=== PATIENT | female | born 1930 | race Hispanic/Latino ===

== ENCOUNTER 2018-02-17 01:47 | Emergency (ER) | payer MEDICARE, OTHER ==
[2018-02-17 03:24] LABS: #Lymphocytes 0.8 thou/uL (1.20-3.40); #Monocytes 0.5 thou/uL (0.11-0.59); #Neutrophils 2.3 thou/uL (1.40-6.50); %Basophils 0.1 % (0.0-1.0); %Lymphocytes 21.3 % (21.0-51.0); %Neutrophils 64.5 % (42.0-75.0); Mean Corpuscular HGB CONC 34.2 g/dL (32.0-36.0); Mean Corpuscular Hemoglobin 30.8 pg (27.0-31.0); Mean Platelet Volume 6.9 fL (7.4-10.4); Platelet Count 339 thou/uL (130-400); RBC Distribution Width 13.3 % (11.5-14.5); Red Blood Cell (RBC) Count 4.22 mill/uL (4.20-5.40); White Blood Cell (WBC) Count 3.6 thou/uL (4.8-10.8)
[2018-02-17 03:33] LABS: ALT (SGPT) 11 U/L (8-55); AST (SGOT) 25 U/L (5-34); Albumin 3.7 g/dL (3.4-4.8); Alkaline Phosphatase 70 U/L (40-150); Anion Gap 11 mmol/L (10-20); BUN (Urea Nitrogen) 15 mg/dL (9.8-20.1); Bilirubin, Total 0.9 mg/dL (0.2-1.2); Calc. Creatinine Clearance 0 mL/min (70-130); Calcium 8.6 mg/dL (7.8-10.44); Carbon Dioxide 25 mmol/L (23-31); Chloride 103 mmol/L (98-107); Estimated GFR-MDRD 74; Globulin 2.5 g/dL (2.4-3.5); Glucose 112 mg/dL (83-110); Potassium 4.5 mmol/L (3.5-5.1); Protein, Total 6.2 g/dL (6.0-8.3); Sodium 134 mmol/L (136-145)
[2018-02-17 03:35] LABS: CKMB 1.4 ng/mL (0-6.6); Troponin I Less than 0.010 ng/mL (< 0.028)
[2018-02-17] MEDS ORDERED: Furosemide 40 MG/4 ML VIAL ONE (04:22)
[2018-02-17 06:27] LABS: Bilirubin Negative (Negative); Blood, Urine Negative (Negative); Clarity CLEAR (Clear); Glucose, Urine (Dipstick) Negative (Negative); Leukocyte Negative (Negative); Nitrite Negative (Negative); Protein, Urine (Dipstick) Negative (Neg-Trace); Specific Gravity, Urine 1.005 (1.002-1.036)
--- NOTE | 2018-02-17 09:00 | RAD ---
CHEST 1 VIEW: Date: 02/17/18 HISTORY: Emergency exam. Weakness. COMPARISON: Chest radiograph dated 03/30/17. FINDINGS: Heart size is enlarged. Prominence of the pulmonary arteries. Blunting left costophrenic sulci. No pn eumothorax. Mild atelectasis in the lung bases. IMPRESSION: No significant change in radiographic appearance of chest. No acute intrathoracic abnormality. POS: [facility]
--- NOTE | 2018-04-22 12:32 | EKG ---
Test Reason : Blood Pressure : / mmHG Vent. Rate : 055 BPM Atrial Rate : 055 BPM P-R Int : 172 ms QRS Dur : 102 ms QT Int : 444 ms P-R-T Axes : 059 -21 055 degrees QTc Int : 424 ms Sinus bradycardia Nonspecific ST and T wave abnormality Abnormal ECG Confirmed by BRANDYN GONZALEZ ([id number]), film editor supervisor LENI ROSSI ([id number] on 04/22/2018 12:31:45 PM Referred By: Confirmed By:BRANDYN GONZALEZ
== END 2018-02-17 07:32 | disposition home or self-care (01) ==
LOC: ERS 01:47
DX: R53.83 Other fatigue (principal); I48.91 Unspecified atrial fibrillation; I49.9 Cardiac arrhythmia, unspecified; E11.9 Type 2 diabetes mellitus without complications; I10 Essential (primary) hypertension; K21.9 Gastro-esophageal reflux disease without esophagitis; F41.9 Anxiety disorder, unspecified; Z79.899 Other long term (current) drug therapy
CPT/HCPCS: 71045; 80053; 81003; 82553; 83880; 84484; 85025; 93005; 96374; J1940

== ENCOUNTER 2018-05-02 05:48 | Emergency (ER) | payer MEDICARE, OTHER ==
[2018-05-02 06:55] LABS: #Lymphocytes 0.7 thou/uL (1.20-3.40); #Monocytes 0.4 thou/uL (0.11-0.59); #Neutrophils 2.5 thou/uL (1.40-6.50); %Eosinophils 0.4 % (0.0-10.0); %Lymphocytes 19.7 % (21.0-51.0); %Neutrophils 67.9 % (42.0-75.0); Hemoglobin 13.6 g/dL (12.0-16.0); Mean Corpuscular HGB CONC 33.4 g/dL (32.0-36.0); Mean Corpuscular Hemoglobin 30.2 pg (27.0-31.0); Mean Corpuscular Volume 90.6 fL (78.0-98.0); Mean Platelet Volume 6.8 fL (7.4-10.4); Platelet Count 312 thou/uL (130-400); RBC Distribution Width 13.7 % (11.5-14.5); Red Blood Cell (RBC) Count 4.49 mill/uL (4.20-5.40); White Blood Cell (WBC) Count 3.7 thou/uL (4.8-10.8)
[2018-05-02 07:19] LABS: CKMB 0.9 ng/mL (0-6.6); Troponin I Less than 0.010 ng/mL (< 0.028)
[2018-05-02 07:39] LABS: ALT (SGPT) 9 U/L (8-55); AST (SGOT) 24 U/L (5-34); Albumin 3.6 g/dL (3.4-4.8); Alkaline Phosphatase 77 U/L (40-150); Anion Gap 13 mmol/L (10-20); BUN (Urea Nitrogen) 16 mg/dL (9.8-20.1); Bilirubin, Total 1.2 mg/dL (0.2-1.2); CK (CPK) 26 U/L (29-168); Calc. Creatinine Clearance 0 mL/min (70-130); Calcium 8.6 mg/dL (7.8-10.44); Carbon Dioxide 25 mmol/L (23-31); Chloride 102 mmol/L (98-107); Estimated GFR-MDRD 77; Globulin 2.5 g/dL (2.4-3.5); Glucose 118 mg/dL (83-110); Potassium 4.5 mmol/L (3.5-5.1); Protein, Total 6.1 g/dL (6.0-8.3); Sodium 135 mmol/L (136-145)
[2018-05-02 08:03] LABS: Bilirubin Negative (Negative); Blood, Urine Negative (Negative); Clarity CLEAR (Clear); Glucose, Urine (Dipstick) Negative (Negative); Leukocyte Negative (Negative); Nitrite Negative (Negative); Protein, Urine (Dipstick) Negative (Neg-Trace); Specific Gravity, Urine 1.015 (1.002-1.036)
== END 2018-05-02 08:34 | disposition home or self-care (01) ==
LOC: ERS 05:48
DX: R53.1 Weakness (principal); R00.1 Bradycardia, unspecified; I10 Essential (primary) hypertension; I48.91 Unspecified atrial fibrillation; E11.9 Type 2 diabetes mellitus without complications; F41.9 Anxiety disorder, unspecified; Z79.899 Other long term (current) drug therapy
CPT/HCPCS: 80053; 81003; 82553; 84484; 85025; 93005

== ENCOUNTER 2018-05-16 04:20 | Observation (INO) | payer MEDICARE, OTHER ==
[2018-05-16 05:07] LABS: #Lymphocytes 0.8 thou/uL (1.20-3.40); #Monocytes 0.4 thou/uL (0.11-0.59); #Neutrophils 2.3 thou/uL (1.40-6.50); %Basophils 0.4 % (0.0-1.0); %Eosinophils 0.7 % (0.0-10.0); %Lymphocytes 22.9 % (21.0-51.0); %Monocytes 11.1 % (0.0-10.0); %Neutrophils 64.8 % (42.0-75.0); Mean Corpuscular HGB CONC 33.3 g/dL (32.0-36.0); Mean Corpuscular Hemoglobin 30.2 pg (27.0-31.0); Mean Corpuscular Volume 90.6 fL (78.0-98.0); Mean Platelet Volume 6.5 fL (7.4-10.4); Platelet Count 323 thou/uL (130-400); RBC Distribution Width 13.5 % (11.5-14.5); Red Blood Cell (RBC) Count 4.63 mill/uL (4.20-5.40); White Blood Cell (WBC) Count 3.5 thou/uL (4.8-10.8)
[2018-05-16 05:20] LABS: ALT (SGPT) 8 U/L (8-55); AST (SGOT) 19 U/L (5-34); Albumin 3.9 g/dL (3.4-4.8); Alkaline Phosphatase 77 U/L (40-150); Anion Gap 9 mmol/L (10-20); BUN (Urea Nitrogen) 12 mg/dL (9.8-20.1); Bilirubin, Total 1.3 mg/dL (0.2-1.2); CK (CPK) 33 U/L (29-168); Calc. Creatinine Clearance 0 mL/min (70-130); Calcium 8.7 mg/dL (7.8-10.44); Carbon Dioxide 27 mmol/L (23-31); Chloride 102 mmol/L (98-107); Estimated GFR-MDRD 73; Globulin 2.2 g/dL (2.4-3.5); Glucose 115 mg/dL (83-110); Potassium 4.4 mmol/L (3.5-5.1); Protein, Total 6.1 g/dL (6.0-8.3); Sodium 134 mmol/L (136-145)
[2018-05-16 05:24] LABS: CKMB 0.9 ng/mL (0-6.6); Troponin I Less than 0.010 ng/mL (< 0.028)
[2018-05-16] MEDS ORDERED: Aspirin 325 MG TAB ONE (05:52)
[2018-05-16] MEDS ORDERED: Nitroglycerin 2% Ointment 1 INCH/1 GM Packet ONE (06:26)
[2018-05-16] MEDS ORDERED: hydrALAZINE 20 MG/ML VIAL SLOW IVP PRN (07:18)
[2018-05-16] MEDS ORDERED: Senokot 8.6 MG TAB PO PRN (07:18)
[2018-05-16] MEDS ORDERED: Sodium Chloride 0.65% Nasal 44 ML BOT EA NARE PRN (07:18)
[2018-05-16] MEDS ORDERED: Artificial Tears 18 DROP/0.9 ML EA EYE PRN (07:18)
[2018-05-16] MEDS ORDERED: Guaifenesin DM 100-10/5 ML UDCUP PO PRN (07:18)
[2018-05-16] MEDS ORDERED: Ondansetron ODT 4 MG TAB PO PRN (07:18)
[2018-05-16] MEDS ORDERED: Zolpidem Tartrate 5 MG TAB PO PRN (07:18)
[2018-05-16] MEDS ORDERED: Eucerin (Mineral Oil/Petrolatum,White) 30 gm Jar TOP PRN (07:18)
[2018-05-16] MEDS ORDERED: Chloraseptic Spray 180 ml Bottle PO PRN (07:18)
[2018-05-16] MEDS ORDERED: Loperamide HCl 2 MG CAP PO PRN (07:18)
[2018-05-16] MEDS ORDERED: Loratadine 10 MG TAB PO PRN (07:18)
[2018-05-16] MEDS ORDERED: Milk Of Magnesia 30 ML UDCUP PO PRN (07:18)
[2018-05-16] MEDS ORDERED: Ondansetron HCl/PF 4 MG/2 ML Vial IVP PRN (07:18)
[2018-05-16] MEDS ORDERED: Mag-Al 1200 mg/1200 mg/30 ML UDCUP PO PRN (07:18)
[2018-05-16] MEDS ORDERED: ADENOSINE 60 MG/20 ML VIAL ONE (07:51)
[2018-05-16 08:18] VITALS: BMI 40.6
[2018-05-16] MEDS: Acetaminophen 325 MG TAB PO PRN ×2 (08:42→14:32)
--- NOTE | 2018-05-16 08:47 | RAD ---
PORTABLE CHEST: Date: 05/16/18 PROVIDED CLINICAL HISTORY: Chest pain. COMPARISON: 02/17/18. FINDINGS: Cardiac and mediastinal silhouette are unchanged in appearance. Vascular calcification is seen. No fo silvina consolidation, pleural fluid, or pneumothorax apparent. IMPRESSION: Cardiomegaly without evidence for acute cardiopulmonary process. POS: [facility]
[2018-05-16] MEDS ORDERED: Famotidine 20 MG TAB PO SCH (09:00)
[2018-05-16] MEDS ORDERED: Apixaban 5 MG TAB PO SCH (09:45)
[2018-05-16] MEDS ORDERED: Lisinopril 5 MG TAB PO SCH (09:45)
[2018-05-16] MEDS ORDERED: busPIRone HCl 5 MG TAB PO SCH (10:15)
[2018-05-16 10:23] LABS: Troponin I Less than 0.010 ng/mL (< 0.028)
[2018-05-16] MEDS: busPIRone HCl 5 MG TAB PO SCH ×2 (10:33→20:19)
[2018-05-16 11:27] LABS: Troponin I Less than 0.010 ng/mL (< 0.028)
--- NOTE | 2018-05-16 12:26 | HP ---
PRIMARY CARE PHYSICIAN: Dr. Carrillo at [facility]. REASON FOR ADMISSION: Chest discomfort and palpitation. HISTORY OF PRESENT ILLNESS: This is an 88-year-old female, who has underlying history of hy pertension, gastroesophageal reflux disease, paroxysmal atrial fibrillation, and chronic anticoagulat ion with Eliquis, who came to emergency room with a complaint of palpitation and chest discomfort. The patient gives a history back in November of this year. Since then she is not feeling good. The p atnoah reports that her primary care physician started on fluoxetine, which she did not tolerate, and subsequently she was changed to Zoloft, which she also did not tolerate well and she also did not to lerate trazodone. Patient reports that her primary care physician started all this medication, becau se her primary care physician was thinking that she has anxiety and depression, but patient did not f eel that type of anxiety and depression. The patient reports that in 02/2018, the patient was starte d on amiodarone and metoprolol, and based on Julian report, the patient has paroxysmal atria l fibrillation and she was also started on anticoagulation with Eliquis. When I spoke with the patie nt, she reports that she also has blood clot problem 4 years ago in her lung and she continued to michael e Eliquis therapy. The patient came to ER with palpitations. She is not able to sleep. Sometimes she wakes up with the palpitation and sometimes she wakes up with the chest discomfort. Her chest discomfort is left-side d without any radiation, without any associated nausea, vomiting, shortness of breath. She denies an y syncope. She denies any orthopnea, PND, or leg swelling. She denies any calf tenderness. She den ies any fever, chills, UTI symptoms. She denies any excessive-caffeinated product. She feels anxiou s, but she denies any depression. The patient reports that she had some kind of testing done at [facility], but she was not sure. She does not know about her testing as well as all detailed medical history. Patient reports that she came to the emergency room recently in our hospital on 05/06/2018, at that t mona she was found with bradycardia and that is why she was advised to reduce metoprolol half and then she saw primary care physician on 05/13/2018. At that time, primary care physician told her to stop metoprolol and all other medication including fluoxetine, Zoloft, trazodone, and she was instructed to take Paxil, paroxetine 10 mg daily, which she has not started taking yet. Patient was taking amio darone as well. Last night in the emergency room, she was hemodynamically stable. Patient was admitted to telemetry floor for rule out ACS. The patient also following her crib attendant at [facility]. REVIEW OF SYSTEMS: The following complete review of systems was negative, unless otherwise mentioned in the HPI or below: Constitutional: Weight loss or gain, ability to conduct usual activities. Sk in: Rash, itching. Eyes: Double vision, pain. ENT/Mouth: Nose bleeding, neck stiffness, pain, te nderness. Cardiovascular: Palpitations, dyspnea on exertion, orthopnea. Respiratory: Shortness of breath, wheezing, cough, hemoptysis, fever, or night sweats. Gastrointestinal: Poor appetite, abdo phuong pain, heartburn, nausea, vomiting, constipation, or diarrhea. Genitourinary: Urgency, frequen cy, dysuria, nocturia. Musculoskeletal: Pain, swelling. Neurologic/Psychiatric: Anxiety, depressi on. Allergy/Immunologic: Skin rash, bleeding tendency. Please see my HPI for pertinent positive an d negative. All other review of systems reviewed and negative except as mentioned in the HPI. PAST MEDICAL HISTORY: Gastroesophageal reflux disease, paroxysmal atrial fibrillation, hypertension, history of pulmonary embolism, gastroesophageal reflux disease. PAST PSYCHIATRIC HISTORY: Anxiety and depression. PAST SURGICAL HISTORY: 1. Bilateral knee surgery. 2. Cholecystectomy. 3. Surgery for right leg femur fracture. SOCIAL HISTORY: Patient lives at home. No history of tobacco, alcohol, or illicit drug abuse. FAMILY HISTORY: No strong family history of premature coronary artery disease, stroke, or cancer. ALLERGIES: TRAMADOL and TRAZODONE. CURRENT HOME MEDICATIONS: Eliquis 5 mg p.o. b.i.d., BuSpar 15 mg p.o. b.i.d., lisinopril 5 mg p.o. b .i.d., amiodarone 200 mg p.o. daily, Protonix 40 mg p.o. daily. EMERGENCY ROOM COURSE: Patient was given nitro patch and aspirin. PHYSICAL EXAMINATION: VITAL SIGNS: On arrival, blood pressure 150/70, pulse 84, respiratory rate 18, temperature 98.1, sat uration 95% on room air, weight 97.0 kilograms. GENERAL: Patient is currently alert, awake, in no obvious acute distress. HEENT: Head: Normocephalic, atraumatic. Eyes: Pupils round, reactive to light. Extraocular muscl e intact. ENT: Oropharynx within normal limits. Moist mucous membrane, no oral lesion, no pharynge al erythema, no exudate. NECK: Supple, no JVD, no thyromegaly, no carotid bruit, no jugular venous distention. LUNGS: Clear to auscultation without any rhonchi or rales. CARDIAC: S1 and S2, regular currently. Soft systolic murmur noted, no gallop, no rub. ABDOMEN: Obesity present. Bowel sounds present, nontender, nondistended. No organomegaly, no mass, no suprapubic tenderness. BACK EXAMINATION: Unremarkable, no CVA tenderness. EXTREMITIES: Upper extremities, passive movement of all joints are normal. Lower extremities, no ed ashley, no calf tenderness. Good distal pulsation. SKIN: No skin rash. HEMATOLOGICAL SYSTEM: No lymphadenopathy. PSYCHIATRIC: Normal affect. NEUROLOGIC: Nonfocal examination. Patient is moving all 4 limbs. Plantar bilateral flexor. PSYCHIATRIC: Normal affect. SIGNIFICANT LABORATORY DATA: EKG showing sinus rhythm without any acute ischemia. Chest x-ray showi ng cardiomegaly without any congestive heart failure. CBC: WBC 3.5, hemoglobin 14.0, platelets 323. BMP: Sodium 134, potassium 4.4, chloride 102, carbon dioxide 27, BUN 12, creatinine 0.75, glucose 115, calcium 8.7. LFT: AST 19, ALT 8, alkaline phosphatase 77, albumin 3.9. Cardiac enzymes negati ve x3. ASSESSMENT AND PLAN: 1. Chest pain, rule out acute coronary syndrome. Her description is atypical, does not sound like c ardiac etiology. At this point, the patient will need further investigation. Based on her age and s ex, her probability of coronary artery disease is low. She is already on chronic anticoagulation wit h Eliquis and that is why thromboembolic disorder is also unlikely. We will do pharmacological stres s test to rule out underlying silent ischemia. 2. Palpitation, most likely related with anxiety. Patient does not have any arrhythmia. She does h ave a history of paroxysmal atrial fibrillation and that is why we will monitor on telemetry floor fo r 24 hours to see any kind of arrhythmia. We are doing stress test for ischemic workup. Patient is instructed to follow up with her primary care physician. 3. Chronic anticoagulation. Continue Eliquis 5 mg p.o. b.i.d. 4. Paroxysmal atrial fibrillation. The patient is taking amiodarone, which we will continue as per home dosage. The patient is on amiodarone 200 mg p.o. daily. The patient is also on chronic anticoa gulation with Eliquis therapy. 5. Hypertension. We will continue lisinopril 5 mg p.o. daily. 6. Gastroesophageal reflux disease. We will continue Protonix 40 mg p.o. daily. 7. Morbid obesity with BMI 40. Dietary education given, weight loss education given. Healthy lifes tyle measures discussed with the patient. 8. Anxiety and depression. The patient is to continue with buspirone 15 mg p.o. b.i.d. Patient was recently prescribed by her primary care physician with the paroxetine 10 mg p.o. daily. 9. Deep venous thrombosis prophylaxis not needed, because she is already on Eliquis therapy. 10. Gastrointestinal prophylaxis, Protonix 40 mg p.o. daily. CODE STATUS: The patient is FULL CODE. Patient does not have any surrogate decision maker. Disposition plan within 24 hours. We will monitor 24 hours on tele and tomorrow we will consider dis charging her home and she needs to follow up with her own primary care physician and crib attendant aft er discharge.
[2018-05-16] MEDS: Lisinopril 5 MG TAB PO SCH (20:18)
[2018-05-16] MEDS: Apixaban 5 MG TAB PO SCH (20:18)
[2018-05-16] MEDS: Diabetic Tussin 200 MG/10 ML UDCUP PO PRN (22:57)
[2018-05-17] MEDS: Nitroglycerin 0.4 MG TAB (25 Tab Bottle) SL PRN ×3 (00:51→01:12)
[2018-05-17] MEDS: Acetaminophen 325 MG TAB PO PRN (01:24)
[2018-05-17] MEDS: Diabetic Tussin 200 MG/10 ML UDCUP PO PRN (04:10)
[2018-05-17] MEDS ORDERED: Benzonatate 100 MG CAP PO PRN (06:48)
[2018-05-17] MEDS: Apixaban 5 MG TAB PO SCH (08:10)
[2018-05-17] MEDS: busPIRone HCl 5 MG TAB PO SCH (08:10)
[2018-05-17] MEDS: Lisinopril 5 MG TAB PO SCH (08:10)
[2018-05-17] MEDS ORDERED: Amiodarone 200 MG TAB PO SCH (09:00)
[2018-05-17 11:40] VITALS: BP 147/70; TEMP 98.2
--- NOTE | 2018-05-17 11:45 | DIS ---
DATE OF ADMISSION: 05/16/2018 DATE OF DISCHARGE: 05/17/2018 PRIMARY CARE PHYSICIAN: Dr. Carrillo at [facility]. DISCHARGE DISPOSITION: Home. PRIMARY DISCHARGE DIAGNOSES: 1. Chest pain, ruled out acute coronary syndrome. 2. Palpitation, likely due to anxiety neurosis. SECONDARY DISCHARGE DIAGNOSES: Anxiety and depression, chronic anticoagulation, paroxysmal atrial fi brillation, morbid obesity with body mass index 40, gastroesophageal reflux disease, hypertension. PRIMARY PROCEDURE/OPERATION: None. RADIOLOGICAL INVESTIGATION: Chest x-ray normal. Stress test, no evidence of reversible ischemia, EF 65%. SIGNIFICANT LABORATORY DATA: WBC 3.5, hemoglobin 14.0, platelet 323. BMP: Sodium 134, potassium 4. 4, BUN 12, creatinine 0.75, calcium 8.7, liver enzymes normal, bilirubin 1.3. Cardiac enzymes negati ve x3. DISCHARGE MEDICATIONS: The patient will continue all her previous home medications: Eliquis 5 mg p. o. b.i.d., BuSpar 15 mg p.o. b.i.d., lisinopril 5 mg p.o. b.i.d., amiodarone 200 mg p.o. daily and Pr otonix 40 mg p.o. daily. CONTRAINDICATIONS: None. CODE STATUS: FULL CODE. INPATIENT CONSULTANTS: None. ALLERGIES: TRAMADOL and TRAZODONE. DISCHARGE PLAN: Post hospital, the patient will follow up with primary care physician and primary ca rdiologist. HOSPITAL COURSE: An 88-year-old female who was admitted by me yesterday. Please see my HPI for furt her details. She came to ER with palpitation and chest discomfort. On admission, her EKG was unrema rkable. Her chest x-ray was normal. Routine blood tests including cardiac enzymes were negative. T he patient was also complaining of palpitations, but it was related with anxiety. Her telemetry luciano tor remained unremarkable. She does have history of paroxysmal atrial fibrillation and that is why s he is on chronic anticoagulation therapy. The patient was on metoprolol and amiodarone and that was dropping her pulse rate and that is why rec ently her metoprolol was discontinued that was also contributing to her fatigue. She will continue h er amiodarone as per primary medical equipment repair technician's recommendation. She was also recently prescribed Paxil a nd paroxetine by primary care physician, but patient does not want to continue that medication. At t his point, patient is medically stable. She has underlying anxiety and that is why I advised her to follow with primary care physician and psychiatrist if needed, she can follow up with her own cardiol ogist and primary care physician. Today, the patient is seen and examined at bedside today. PHYSICAL EXAMINATION: VITAL SIGNS: Currently, temperature 97.6, pulse 65, blood pressure 144/68, respiratory rate 16, satu ration 93% on room air, weight 216 pounds. GENERAL: The patient is alert and oriented, no acute distress. HEAD: Normocephalic, atraumatic. LUNGS: Clear to auscultation without any rhonchi or rales. CARDIAC: S1, S2 regular. No murmur, no gallop, no rub. ABDOMEN: Soft with bowel sounds present, nontender, nondistended. No organomegaly, no mass. EXTREMITIES: No edema. NEUROLOGIC: Nonfocal examination. REVIEW OF SYSTEMS: Reviewed with her and negative. The patient is medically stable for discharge today.
--- NOTE | 2018-05-17 11:55 | NM ---
MYOCARDIAL PERFUSION SCAN: Date: 05/17/18 PROVIDED CLINICAL HISTORY: Chest pain. RADIOPHARMACEUTICAL: 29.1 mCi technetium-99m labeled sestamibi IV at stress. 31 mCi technetium-99m labeled sestamibi IV at rest. FINDINGS: There is a very small focus of diminished radiotracer accumulation at the anteroseptum, present at christina th stress and rest. No evidence for reversibility to suggest ischemia. Gated data demonstrate normal myocardial wall motion and thickening with calculated LVEF of 65%. TID is 1.0. IMPRESSION: 1. No scintigraphic evidence for ischemia. 2. LVEF 65%. POS: [facility]
== END 2018-05-17 13:49 | disposition home or self-care (01) ==
LOC: ERS 04:20 → 2SW 06:50
PROVIDERS: ADMIT Internal Medicine; ATTEND Internal Medicine
DX: R07.9 Chest pain, unspecified (principal); R00.2 Palpitations; F41.8 Other specified anxiety disorders; I48.0 Paroxysmal atrial fibrillation; E66.01 Morbid (severe) obesity due to excess calories; K21.9 Gastro-esophageal reflux disease without esophagitis; I10 Essential (primary) hypertension; Z68.41 Body mass index [BMI] 40.0-44.9, adult; Z79.01 Long term (current) use of anticoagulants; Z79.899 Other long term (current) drug therapy; Z88.5 Allergy status to narcotic agent
CPT/HCPCS: 71045; 78452; 80053; 82550; 82553; 84484 ×2; 85025; 93005; 93017; 93306; 99285; A9500; G0378; 36415; A4216; J0153; Q0162